=== PATIENT | male | born 1990 ===

== ENCOUNTER 2018-03-24 18:44 | Emergency (ER) | payer OTHER ==
[~2018-03-24] VITALS: Ht 182.9 cm; Wt 86.2 kg
[2018-03-24] MEDS ORDERED: ADDERALL 20 MG20 MG (19:17)
[2018-03-24] MEDS ORDERED: TRAMADOL HCL50 MG PO (20:10)
[2018-03-24] MEDS ORDERED: ACYCLOVIR200 MG PO (20:10)
[2018-03-24] MEDS ORDERED: CEPHALEXIN500 MG PO (20:10)
[2018-03-24] MEDS ORDERED: BACTRIM DS TAB1 EACH PO (20:10)
== END 2018-03-24 20:35 | disposition home or self-care (01) ==
LOC: ED 18:44
DX: N48.29 Other inflammatory disorders of penis (principal); F90.9 Attention-deficit hyperactivity disorder, unspecified type; Z88.8 Allergy status to other drugs, medicaments and biological substances; Z79.899 Other long term (current) drug therapy
CPT/HCPCS: 87070; 87077; 87186; 87205; 87529; 99283

== ENCOUNTER 2018-11-14 09:00 | Day surgery (SDC) | payer OTHER ==
[~2018-11-14] VITALS: Ht 182.9 cm; Wt 86.2 kg
[~2018-11-14 09:00] MED LIST: ACYCLOVIR200 MG PO; ADDERALL 20 MG20 MG; BACTRIM DS TAB1 EACH PO; CEPHALEXIN500 MG PO; TRAMADOL HCL50 MG PO; TRETINOIN10 MG PO
[2018-11-14] MEDS ORDERED: CIPRO500 MG PO (09:25)
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
--- NOTE | 2018-11-14 13:38 | NUR ---
1330: PATIENT BACK IN DAY SURGERY ROOM FROM PACU. C/O PAIN 06/28. GIVEN CRACKERS AND ICE WATER. MEDICATED FOR PAIN WITH 1 TAB OF NORCO. VS CHECKED. CAP REFILL TO LEFT FINGERS WNL. LEFT RING FINGER DRESSING CDI. IV SITE WNL. SCDs ON. CALL LIGHT WITHIN REACH. GIRLFRIEND AT BEDSIDE.
[2018-11-14] MEDS ORDERED: NORCO 5-325 TA1 EACH PO (14:05)
--- NOTE | 2018-11-14 15:16 | NUR ---
1420: VS CHECKED. PATIENT TOLERATING WATER AND CRACKERS. PATIENT ASSISTED OOB TO BATHROOM. GAIT STEADY. VOID WITHOUT DIFFICULTY. GAIT STEADY BACK TO ROOM. IV DC'D WNL. TIP INTACT. DRESSNG APPLIED. DISCHARGE INSTRUCTIONS GIVEN TO PATIENT AND GIRLFRIEND. PATIENT DISCHARGED TO HOME VIA WHEELCHAIR WITH GIRLFRIEND.
--- NOTE | 2018-11-25 08:32 | OR ---
[facility] [place] [facility] [address] [place], [place] [address] Signed DATE OF OPERATION: SURGEON: Mandy Martini MD DATE OF SURGERY: 11/14/2018 PREOPERATIVE DIAGNOSIS: Malunion fracture dislocation left ring proximal interphalangeal joint. POSTOPERATIVE DIAGNOSIS: Malunion fracture dislocation left ring proximal interphalangeal joint. PROCEDURE: Attempted open reduction and internal fixation followed by fusion of the left ring metacarpophalangeal joint. ANESTHESIA: General. SPECIMENS AND COMPLICATIONS: There were no specimens or complications. TOURNIQUET TIME: About 45 minutes. WHAT WAS DONE: The patient was taken to the operating room. After anesthesia was induced and airway secured, the left upper extremity was positioned, prepped and draped in the routine sterile fashion. A dorsal incision was made over the PIP joint through skin and subcutaneous tissue. The extensor mechanism was split but left attached to the base of the middle phalanx. We then examined the PIP joint, and there was virtually no articular cartilage remaining on either the condyles of the proximal phalanx or on a good portion of the base of the middle phalanx. We did release the ray of the ulnar collateral ligament and were able to presumptively reduced the joint but it was completely unstable and the volar fragment was not substantial enough for internal fixation. We therefore hyperflexed the joining, used a small curette and small rongeur, removed the remaining articular surface off the condyles of the proximal phalanx and the base of the middle phalanx. We then placed the finger in neutral rotation, neutral varus valgus and about 40 degrees of flexion. We secured it with a single K-wire then augmented the fixation with two lag screws and we then removed the K-wire. This gave us a solid construct and Electronically Signed By: MANDY MARTINI MD 11/25/18 0832 PATIENT NAME: DIONICIO SELF OPERATIVE REPORT DATE OF : 88 REPORT #: [id number] PHYSICIAN: MANDY MARTINI MD PCP: NO PRIMARY CARE PHYSICIAN REPORT IS CONFIDENTIAL AND NOT TO BE RELEASED WITHOUT AUTHORIZATION [facility] [address] [place], [place] [address] Signed good alignment and position. The wound was gently irrigated, closed in standard fashion. Sterile dressing and a splint applied. The patient was awakened and taken to the recovery room and arrived in stable condition. Counts were correct and antibiotic protocols were followed. Mandy Martini MD WFB/MODL /[id number] Copies: ~ Electronically Signed By: MANDY MARTINI MD 11/25/18 0832 PATIENT NAME: DIONICIO SELF OPERATIVE REPORT DATE OF : [birth year] REPORT #: [id number] PHYSICIAN: MANDY MARTINI MD PCP: NO PRIMARY CARE PHYSICIAN REPORT IS CONFIDENTIAL AND NOT TO BE RELEASED WITHOUT AUTHORIZATION
== END 2018-11-14 14:30 | disposition home or self-care (01) ==
LOC: OPS 09:00 → DS 09:00 → OPS 09:30
PROVIDERS: Orthopaedic Surgery
PROC: 0RGV04Z Fusion of Left Metacarpophalangeal Joint with Internal Fixation Device, Open Approach (ICD-10-PCS; principal; 2018-11-14 11:00)
DX: S62.625P Displaced fracture of middle phalanx of left ring finger, subsequent encounter for fracture with malunion (principal); Z79.1 Long term (current) use of non-steroidal anti-inflammatories (NSAID); W23.1XXD Caught, crushed, jammed, or pinched between stationary objects, subsequent encounter
CPT/HCPCS: 01830; 73140; C1713; J0690; J1100; J1885; J2250; J2405; J2704; J3010; J7120

== ENCOUNTER → 2019-05-17 | Emergency (ER) | payer OTHER ==
[~2019-05-17] VITALS: Ht 182.9 cm; Wt 81.7 kg
[~2019-05-17] MED LIST changes: +ALPRAZOLAM1 MG PO; +CIPRO500 MG PO; +NORCO 5-325 TA1 EACH PO
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
== END ==
LOC: ED 19:32
DX: S09.90XA Unspecified injury of head, initial encounter (principal); Z87.891 Personal history of nicotine dependence; Z88.1 Allergy status to other antibiotic agents; Y04.0XXA Assault by unarmed brawl or fight, initial encounter
CPT/HCPCS: 70450; 72125; 73110; 80053; 85025; 99284-25; G0480

== ENCOUNTER 2019-05-18 14:41 | Emergency (ER) | payer OTHER ==
[~2019-05-18] VITALS: Ht 182.9 cm; Wt 81.7 kg
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
== END 2019-05-18 18:49 | disposition home or self-care (01) ==
LOC: ED 14:41
DX: S06.0X0A Concussion without loss of consciousness, initial encounter (principal); S00.83XA Contusion of other part of head, initial encounter; H72.92 Unspecified perforation of tympanic membrane, left ear; Z87.891 Personal history of nicotine dependence; Z88.1 Allergy status to other antibiotic agents; Z79.899 Other long term (current) drug therapy; F90.9 Attention-deficit hyperactivity disorder, unspecified type; Y04.8XXA Assault by other bodily force, initial encounter
CPT/HCPCS: 99284

== ENCOUNTER 2020-06-23 10:25 | Emergency (ER) | payer OTHER ==
[~2020-06-23] VITALS: Ht 182.9 cm; Wt 81.7 kg
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
== END 2020-06-23 12:22 | disposition home or self-care (01) ==
LOC: ED 10:25
DX: R10.13 Epigastric pain (principal); R11.10 Vomiting, unspecified; F17.200 Nicotine dependence, unspecified, uncomplicated; Z88.8 Allergy status to other drugs, medicaments and biological substances
CPT/HCPCS: 80053; 81001; 83690; 85025; 96361; 96374; 96375; 99284-25; J2405; J2765; J7030

== ENCOUNTER 2025-03-08 09:13 | Emergency (ER) | payer OTHER ==
[~2025-03-08] VITALS: Ht 182.9 cm; Wt 92.2 kg
--- OUTSIDE RECORDS SUMMARY | 2025-03-08 09:20 | XMS ---
PreManage Notification: DIONICIO SELF Security Principal Consultant Events No recent Security Events currently on file CRITERIA MET - Group Notification CARE PROVIDERS -, [facility] Dentist: Pet Care Attendant [facility] PHONE: [phone] -Kd- Dentist: Pet Care Attendant [facility] PHONE: [phone] VIDA SWANSON Physician Channel [employer] St[employer] Current PHONE: [phone] [place] PRIMARY Clinic/Center: [facility] PHONE: [phone] Pako has no Care Guidelines for this patient. Care History Medical/Surgical 05/19/2019 [facility] \R\- [facility] CASE MANAGEMENT REFERRAL MADE- PATIENT HAS E[facility] AND NO PCP. E.DMarlene VISIT COUNT (12 MO.) 2 [facility] NOTE: Visits indicate total known visits. ED/UCC VISIT TRACKING (12 MO.) 03/08/2025 09:13 [facility] Lucy Yi [place] TYPE: Emergency COMPLAINT: - FALL 10/17/2024 15:36 Sveta MORTENSEN TYPE: Emergency 09/23/2024 06:48 Sveta MORTENSEN TYPE: Emergency INPATIENT VISIT TRACKING (12 MO.) No inpatient visits to display in this time frame [email or web address]
[2025-03-08] MEDS ORDERED: WELLBUTRIN SR150 MG PO (09:25)
[2025-03-08] MEDS ORDERED: NICODERM CQ1 EACH TD (09:26)
[2025-03-08] MEDS ORDERED: ALPRAZOLAM0.5 MG PO (09:26)
[2025-03-08] MEDS ORDERED: CLONIDINE HCL0.2 MG PO (09:26)
[2025-03-08] MEDS ORDERED: ONDANSETRON ODT8 MG PO (11:00)
[2025-03-08 11:04] VITALS: BP 130/89
== END 2025-03-08 11:04 | disposition home or self-care (01) ==
LOC: ED 09:13
DX: S06.0X0A Concussion without loss of consciousness, initial encounter (principal); S50.02XA Contusion of left elbow, initial encounter; Z88.9 Allergy status to unspecified drugs, medicaments and biological substances; F17.200 Nicotine dependence, unspecified, uncomplicated; X58.XXXA Exposure to other specified factors, initial encounter
CPT/HCPCS: 70450; 73080; 99284-25

== ENCOUNTER 2025-11-08 18:23 | Emergency (ER) | payer OTHER ==
[~2025-11-08] VITALS: Ht 182.9 cm; Wt 105.6 kg
[~2025-11-08 18:23] MED LIST changes: +ALPRAZOLAM0.5 MG PO; +CLONIDINE HCL0.2 MG PO; +NICODERM CQ1 EACH TD; +ONDANSETRON ODT8 MG PO; +WELLBUTRIN SR150 MG PO
--- OUTSIDE RECORDS SUMMARY | 2025-11-08 18:30 | XMS ---
PreManage Notification: DIONICIO SELF Security Neurology Physician Assistant Events No recent Security Events currently on file CRITERIA MET - Group Notification - [facility] - 2 Visits in 30 Days - [facility] - 3 Facilities in 90 Days CARE PROVIDERS -, [facility] Dentist: Breaker Unit Assembler [facility] PHONE: [phone] -, Kd- Dentist: Breaker Unit Assembler [facility] PHONE: [phone] VIDA SWANSON Physician Transmission Operator Current PHONE: [phone] KD PRIMARY Clinic/Center: Primary Care [facility] PHONE: [phone] RASHAD PINEDA Physician Current PHONE: [phone] Pako has no Care Guidelines for this patient. Care History Medical/Surgical 05/19/2019 [facility] \R\- [facility] CASE MANAGEMENT REFERRAL MADE- PATIENT HAS EOCCO AND NO PCP. E.DMarlene VISIT COUNT (12 MO.) 3 [facility] Tonio [facility] - [facility] TOTAL 6 NOTE: Visits indicate total known visits. ED/UCC VISIT TRACKING (12 MO.) 11/08/2025 18:24 ALFREDA Reyna TYPE: Emergency COMPLAINT: - SKIN PROBLEMS 11/08/2025 13:25 ALFREDA Reyna TYPE: Emergency COMPLAINT: - SKIN PROBLEM 08/31[facility]2025 12:[facility] DIAGNOSES: - Chest pain, unspecified - Personal history of pneumonia (recurrent) - CP, SOB [facility] 08/27/2025 13:44 [facility]: [facility] DIAGNOSES: - Pneumonia, unspecified organism - ETOH - Sepsis 08/20/2025 10:[address] TYPE: Emergency DIAGNOSES: - Acute prostatitis - Anemia, unspecified - Constipation - Testicular Pain - Urinary Frequency 03/08/2025 09:13 ALFREDA Reyna TYPE: Emergency COMPLAINT: - FALL DIAGNOSES: - Allergy status to unspecified drugs, medicaments and biological substances - Concussion without loss of consciousness, initial encounter - Contusion of left elbow, initial encounter - Exposure to other specified factors, initial encounter - Nicotine dependence, unspecified, uncomplicated INPATIENT VISIT TRACKING (12 MO.) No inpatient visits to display in this time frame [email or web address]
[2025-11-08] MEDS ORDERED: ADDERALL 20 MG20 MG PO (20:08)
[2025-11-08] MEDS ORDERED: FLUCONAZOLE 150 MG TAB PO ONE (20:45)
[2025-11-08 21:12] LABS: BASOPHILS 0.6 % (0.2-1.2); EOSINOPHILS 3.8 % (0.8-7.0); LYMPHOCYTES 18.1 % (21.8-53.1); MCH 29.8 PG (25.7-32.2); MCHC 34.1 g/dL (32.3-36.5); MCV 87.2 fL (79.0-92.2); MONOCYTES 8.1 % (5.3-12.2); NEUTROPHILS 68.8 % (34.0-67.9); RBC 4.30 M/uL (4.63-6.08)
[2025-11-08 21:32] LABS: ALT (SGPT) 27.0 U/L (14-59); AST (SGOT) 17.0 U/L (15-37); GLOMERULAR FILTRATION RATE,EST 87.0 mL/min (>60); PROTEIN, TOTAL 6.6 g/dL (6.4-8.2); UREA NITROGEN 13.0 mg/dL (7-18)
[2025-11-08] MEDS ORDERED: BACTRIM DS TAB1 EACH PO (22:10)
[2025-11-08] MEDS ORDERED: FLUCONAZOLE150 MG PO (22:10)
[2025-11-08] MEDS ORDERED: TRIMETHOPRIM/SULFAMETHOXAZOLE 1 EA HOME.PACK PO ONE (22:15)
== END 2025-11-08 22:50 | disposition home or self-care (01) ==
LOC: ED 18:23
PROVIDERS: Family Medicine
DX: N41.0 Acute prostatitis (principal); R21 Rash and other nonspecific skin eruption; F17.200 Nicotine dependence, unspecified, uncomplicated; Z88.8 Allergy status to other drugs, medicaments and biological substances; Z79.899 Other long term (current) drug therapy
CPT/HCPCS: 36415; 80053; 85025; 99283; A9270